=== PATIENT | female | born 1995 ===

== ENCOUNTER → 2018-11-15 | Outpatient (REF) | payer OTHER ==
[~2018-11-15] MED LIST: PRENTAB9 PO
== END ==
LOC: M LAB REF 16:53
PROVIDERS: ATTEND Obstetrics & Gynecology
DX: Z34.03 Encounter for supervision of normal first pregnancy, third trimester (principal)

== ENCOUNTER 2018-12-16 23:16 | Inpatient (IN) | payer OTHER ==
[~2018-12-16] VITALS: Ht 154.9 cm; Wt 90.9 kg
[2018-12-17] VITALS (12 sets, daily range): BP systolic 102–148; BP diastolic 6–71
[2018-12-17] MEDS ORDERED: LACTATED RINGER'S 1000 ML IV STA (00:04)
--- NOTE | 2018-12-17 00:18 | HPEPDOC ---
Obstetrical History & Physical General Date of Admission Dec 17, 2018 at 00:02 History of Present Illness Chief Complaint: Contractions, term Information Provided By: Patient Age: 22 : 1 Term: 0 Pre-term: 0 Abortions: 0 Livin Care Care: Good Care Dating Final EDC: Dec 20, 2018 Final EDC by: 1st trimester (US) EGA at Admission: 39 (+2) Antepartum Course Height (inches): 62 Pre- weight (lbs.): 192 Admission Weight (lbs.): 8 Past Medical History Past Obstetrical History : Past Obstetrical History: Primgrav[employer] History: No pertinent history Past Medical History Surgical History: Denies/None Family History Significant Family History: Other (epilepsy) Social History Marital Status: Family situation: Spouse/partner home Psychosocial History: No pertinent psych hx * Smoker: non-smoker Alcohol: Denies Drugs: denies Abuse Violence Screening Have you been hit/kicked/slapp: No Have you been sexually assault: No Imunizations Tdap status: current Allergies Coded Allergies: No Known Drug Allergies (Verified Allergy, Unknown, 11/08/18) Medications Scheduled No.137/Iron/Folic Acd ( Vitamin Tablet) 1 Each Tablet, 1 TAB PO DAILY Physical Examination Physical Examination GENERAL: Alert and oriented times three. BREAST: . ABDOMEN: Gravid and non-tender to touch. FETUS: Is vertex (VTX) by sterile vaginal examination (SVE), fetus is vertex (VTX) by Regan. HEART RATE: Regular rate and rhythm. LUNGS: Clear to auscultation (CTA). EXTREMITIES: No edema. No clonus. Deep tendon reflexes (DTRs) + 2. Pertinent Laboratoy Data Blood Type: O+ RBC Antibody Screen: Negative HIV: Negative Hepatitis B: Negative Hepatitis C: Negative Rapid Plasma Reagin: Nonreactive Rubella: Immune Chlamydia/Gonorrhea: Negative Group B Streptococcus: Negative Quad Screen Test: Unknown Glucose Tolerance Test: 91 Anatomy Ultrasound Ultrasound Date: Jul 28, 2018 Placenta Location: Posterior Normal Anatomy: Yes Placenta Previa: No Estimated Weight (grams): 294 Other Ultrasounds 04/27/18 dating 12/20/18 Steroid Therapy Steroid Therapy: No Vaginal Examination Dilation: 3 cm Effacement: 90% Station: -1 Cervical Consistency: Soft Cervical Position: Middle Presentation: Cephalic presentation Assessment Heart Rate (FHR): 145 Variability: Moderate Accelerations: Positive Decelerations: None Tocometer Contractions: Yes Frequency: irregular, every 2-5 min. Duration: greater than 60 seconds Strength: palpated as mild Assessment/Plan Assessment Che is a 22-year-old (G)1 para (P)0-0-0-0 at 39+2 weeks by 9-week ult rasound. Presents to Labor and Delivery (L&D) with complaints of contractions and bloody show. Denies LOF. 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 Diet: clear liquids. Group B Streptococcus (GBS) negative. Labs and intravenous (IV) per unit protocol. Preeclamptic panel ordered Counseled on Pitocin and induction of labor (IOL). Lactated Ringers (LR): Bolus 500 mL, then at 125 mL/hr. Plans to labor ad maude Anticipate normal spontaneous delivery (). C-S as appropriate. Abbey Hightower CNM Dec 17, 2018 00:18
[2018-12-17 00:55] LABS: HEMATOCRIT 36.6 % (36.0-47.0); HEMOGLOBIN 12.5 g/dl (12.0-15.5); MEAN CORPUSCULAR HEMOGLOBIN 31.5 pg (27.0-33.0); MEAN CORPUSCULAR HGB CONC 34.2 g/dl (32.0-36.5); MEAN CORPUSCULAR VOLUME 92.2 fl (80.0-96.0); PLATELET COUNT, AUTOMATED 154 10^3/uL (150-450); RED BLOOD COUNT 3.97 10^6/uL (4.00-5.40); WHITE BLOOD COUNT 10.9 10^3/uL (4.0-10.0)
[2018-12-17 01:18] LABS: ALT/SGPT 15 U/L (12-78); BILIRUBIN,TOTAL 0.1 MG/DL (0.2-1.0); CREATININE FOR GFR 0.46 MG/DL (0.55-1.30); CREATININE,RANDOM URINE 31.8 MG/DL; LDH LACTATE DEHYDROGENASE 178 U/L (84-246); TOTAL PROTEIN,RANDOM URINE 8.9 MG/DL (0.0-12.0)
[2018-12-17] MEDS ORDERED: PROMETHAZINE INJ 25 MG/ML VIAL (J2550) IV ONE ×2 (02:45→06:30)
[2018-12-17] MEDS ORDERED: BUTORPHANOL 2 MG/ML INJ (J0595) IV ONE ×2 (02:45→06:30)
[2018-12-17] MEDS: LR 1,000 ML IV SCH ×2 (02:59→06:26)
--- NOTE | 2018-12-17 06:21 | IPNPDOC ---
Text Note Date of Service The patient was seen on 12/17/18. NOTE Requesting more pain management Continues to refuse epidural UC 2-3 minutes x 60 seconds, moderate FH 130, moderate variability SVE 7/100/-1, BBOW VS,Fishbone, I+O VS, Fishbone, I+O Laboratory Tests 12/17/18 00:43 Red Blood Count 3.97 L, Mean Corpuscular Volume 92.2, Mean Corpuscular Hemoglobin 31.5, Mean Corpuscular Hemoglobin Concent 34.2, Red Cell Distribution Width 14.1, Aspartate Amino Transf (AST/SGOT) 14, Alanine Aminotransferase (ALT/SGPT) 15, Lactate Dehydrogenase 178, Total Bilirubin 0.1 L, Uric Acid 4.0 Vital Signs Date Time Temp Pulse Resp B/P (MAP) Pulse Ox O2 Delivery O2 Flow Rate FiO2 12/17/18 03:01 16 I&O- Last 24 Hours up to 6 AM 12/17/18 06:00 Output Total 650 ml Balance -650 ml Abbey Hightower CNM Dec 17, 2018 06:20
[2018-12-17] MEDS ORDERED: OXYTOCIN 30 UNITS IN 0.9% NaCl 500ML IV BAG (J2590) As Ordered ONE (08:55)
[2018-12-17] MEDS ORDERED: OXYTOCIN DRIP 30 UNITS in APPROPRIATE DILUENT 1 EA IV ONE (12:00)
[2018-12-17] MEDS ORDERED: ONDANSETRON 4MG/2ML VIAL (J2405) IV PRN (12:00)
[2018-12-17] MEDS ORDERED: DOCUSATE SODIUM 100 MG CAP PO PRN (12:00)
[2018-12-17] MEDS ORDERED: METHYLERGONOVINE MALEATE 0.2 MG TAB PO PRN (12:00)
[2018-12-17] MEDS ORDERED: RHOGAM 300 MCG (1500 IU) INJ (J2790) IM SCH (12:00)
[2018-12-17] MEDS ORDERED: DIBUCAINE 1% OINTMENT 30GM TOP PRN (12:00)
[2018-12-17] MEDS ORDERED: ACETAMINOPHEN 500 MG TAB PO PRN (12:00)
[2018-12-17] MEDS ORDERED: IBUPROFEN 800 MG TAB PO PRN (12:00)
[2018-12-17] MEDS ORDERED: MEASLES,MUMPS,RUBELLA VACCINE INJ (MMR-II) (90707) SC SCH (12:00)
[2018-12-17] MEDS ORDERED: LIDOCAINE 1% MDV 20ML VIAL INFIL ONE (12:00)
[2018-12-17] MEDS: PRENATAL VITAMINS CHEWABLE TABLET PO SCH (15:00)
--- NOTE | 2018-12-17 15:16 | DN ---
DATE: 12/17/2018 PREDELIVERY DIAGNOSIS: 39-4/7 weeks gestation in labor. POSTDELIVERY DIAGNOSIS: Delivered. PROCEDURE: Spontaneous vaginal delivery. CLINICAL RESEARCH ASSISTANT: Dr. Ramiro Shepherd. ANESTHESIA: None. ESTIMATED BLOOD LOSS: 300 mL. FINDINGS: 7 pound, 10 ounce female with scores 8 and 9. DELIVERY SUMMARY: After approximately 90 minutes second stage of labor, the patient had spontaneous delivery of a 7 pound 10 ounce female infant, scores 8 and 9, with no delivery anesthesia. There was no nuchal cord. The shoulders delivered with ease. Infant was handed to the mother and cried immediately. The cord was doubly clamped and cut. Placenta was delivered spontaneously and appeared to be intact. The patient received intravenous (IV) Pitocin immediately after delivery of the placenta. A first degree perineal laceration was repaired with local anesthesia and #2-0 Chromic in the usual fashion. Sponge and needle counts were correct.
[2018-12-18 06:38] VITALS: BP 104/54
[2018-12-18] MEDS: PRENATAL VITAMINS CHEWABLE TABLET PO SCH (08:42)
[2018-12-18 18:00] VITALS: BP 123/64
[2018-12-19 06:08] VITALS: BP 128/65
[2018-12-19] MEDS ORDERED: ACET-683 PO (06:20)
[2018-12-19] MEDS ORDERED: IBUP80TA PO (06:20)
[2018-12-19] MEDS: PRENATAL VITAMINS CHEWABLE TABLET PO SCH (07:38)
== END 2018-12-19 09:20 | disposition home or self-care (01) | DRG 807 ==
LOC: M LDO 23:16 → M LDI 12-17 00:02 → M OBS 12-17 13:21
PROVIDERS: ADMIT Advanced Practice Midwife; ATTEND Specialist
PROC: 10E0XZZ Delivery of Products of Conception, External Approach (ICD-10-PCS; principal; 2018-12-17)
PROC: 0HQ9XZZ Repair Perineum Skin, External Approach (ICD-10-PCS; 2018-12-17)
DX: O70.0 First degree perineal laceration during delivery (principal); Z37.0 Single live birth; Z3A.39 39 weeks gestation of pregnancy